=== PATIENT | female | born 1995 | race Two or more races ===

== ENCOUNTER 2019-05-28 23:04 | Inpatient (IN) | payer OTHER ==
[~2019-05-28] VITALS: Ht 170.2 cm; Wt 79.4 kg
[2019-05-29] VITALS (43 sets, daily range): BP systolic 99–142; BP diastolic 55–99
[2019-05-29] MEDS ORDERED: PENICILLIN G POTASSIUM IV 5 MU in D5W MINI-BAG PLUS 100 ML IV STA (00:07)
[2019-05-29] MEDS ORDERED: LR 1,000 ML IV SCH (00:08)
[2019-05-29] MEDS ORDERED: OXYTOCIN DRIP 30 UNITS in IV 1 EA IV SCH ×2 (00:15→11:13)
[2019-05-29 00:56] LABS: HEMATOCRIT 37.5 % (36.0-47.0); MEAN CORPUSCULAR HEMOGLOBIN 27.8 pg (27.0-33.0); MEAN CORPUSCULAR VOLUME 86.8 fl (80.0-96.0); PLATELET COUNT, AUTOMATED 220 10^3/uL (150-450); RED BLOOD COUNT 4.32 10^6/uL (4.00-5.40)
[2019-05-29] MEDS ORDERED: PENICILLIN G POTASSIUM IV 2.5 MU in IV 1 EA IV SCH (06:00)
[2019-05-29] MEDS ORDERED: FENTANYL 2MCG/ML ROPIVACAINE 0.2% IN 0.9% NACL 100ML IVBAG As Ordered ONE (06:34)
--- NOTE | 2019-05-29 07:15 | HPE ---
DATE OF ADMISSION: 05/28/2019 HISTORY: 24-year-old, (G) 1 female, at 39 and 3/7 weeks gestation by last menstrual period (LMP), consistent with an ultrasound and expected date of confinement (EDC) of 06/02/2019 admitted with contractions every 6-7 minutes for the last several hours. The contractions have increased in intensity. She denies vaginal bleeding. There is good movement. COURSE: The patient started care and has been in [place], [place], with [facility]. She has a history of lupus and did have maternal medicine consult during the while in [place]. She had no related complications. MEDICAL HISTORY: 1. Lupus. 2. Congenital heart defect which healed spontaneously and did not require surgical repair. SURGICAL HISTORY: None. ALLERGIES: None. SOCIAL HISTORY: The patient has been living in [place], but currently resides in [facility]. She has had no care in [facility]. She denies cigarettes, alcohol or drug use. 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 FAMILY HISTORY: Noncontributory. PHYSICAL EXAMINATION: Blood pressure 134/74. Pulse 84. Afebrile. She appears mildly uncomfortable. Head and Neck Exam: Normal. Lungs: Clear. Heart: Regular rate and rhythm. Abdomen: Nontender. Gravid. heart tones Category 1. Sterile Vaginal Exam: 3 cm, 100% effaced, -2, posterior, soft, vertex. Contractions every 5-6 minutes, moderate. Extremities: Nontender. LABS: HIV negative. Blood type O positive. GBS positive. ASSESSMENT: 24-year-old, G1, at 39 and 3/7 weeks gestation who presents in early labor. The patient has a history of lupus affecting . PLAN: The patient will be admitted for early labor in anticipation of delivery. The patient will be treated for GBS positive status with penicillin.
[2019-05-29] MEDS ORDERED: ONDANSETRON 4MG/2ML VIAL (J2405) IV PRN ×2 (08:00→11:15)
[2019-05-29] MEDS ORDERED: EPIDURAL COMMENT XX SCH (08:00)
[2019-05-29] MEDS ORDERED: diphenhydrAMINE INJ 50MG/ML VIAL (J1200) IV PRN (08:00)
[2019-05-29] MEDS ORDERED: NALOXONE INJ 0.4 MG/1 ML VIAL (J2310) IV PRN (08:00)
[2019-05-29] MEDS ORDERED: EPIDURAL/PCA KEYS XX PRN (08:00)
[2019-05-29] MEDS ORDERED: REFRIGERATOR IV KEYS XX PRN (08:00)
[2019-05-29] MEDS ORDERED: LACTATED RINGER'S 1000 ML IV PRN (08:00)
[2019-05-29] MEDS ORDERED: ePHEDrine SULFATE 25 MG/5 ML(5MG/ML) SYRINGE IV PRN (08:00)
[2019-05-29] MEDS ORDERED: FENTANYL/ROPIVACAINE/NACL BAG 100 ML EPIDURAL SCH (08:00)
[2019-05-29] MEDS: PRENATAL VITAMINS CHEWABLE TABLET PO SCH (09:00)
[2019-05-29] MEDS ORDERED: DIBUCAINE 1% OINTMENT 30GM TOP PRN (11:15)
[2019-05-29] MEDS ORDERED: MEASLES,MUMPS,RUBELLA VACCINE INJ (MMR-II) (90707) SC SCH (11:15)
[2019-05-29] MEDS ORDERED: RHOGAM 300 MCG (1500 IU) INJ (J2790) IM SCH (11:15)
[2019-05-29] MEDS ORDERED: DOCUSATE SODIUM 100 MG CAP PO PRN (11:15)
[2019-05-29] MEDS ORDERED: METHYLERGONOVINE MALEATE 0.2 MG TAB PO PRN (11:15)
[2019-05-29] MEDS ORDERED: ACETAMINOPHEN TAB 650MG DOSE (2X325MG) PO PRN (11:15)
[2019-05-29] MEDS ORDERED: ACETAMINOPHEN 500 MG TAB PO PRN (11:15)
[2019-05-29] MEDS ORDERED: IBUPROFEN 800 MG TAB PO PRN (11:15)
--- NOTE | 2019-05-29 14:10 | DN ---
DATE OF DELIVERY: 05/29/2019 PREDELIVERY DIAGNOSIS: 39 weeks labor. Maternal history of lupus. POST DELIVERY DIAGNOSIS: Delivered. PROCEDURE: Spontaneous vaginal delivery. GRAVURE PRESS SET UP OPERATOR: Dr. Inder Cardona M.D. COST SPECIALIST: Dalton Shen DO ANESTHESIA: Epidural. ESTIMATED BLOOD LOSS: 300 mL. FINDINGS: 6 pound, 13 ounce female with scores 8 and 9. DELIVERY SUMMARY: After 45 minute short second stage, the patient had spontaneous delivered a 6 pound 13 ounce female infant scores 8 and 9 under epidural anesthesia. There is no nuchal cord. The remaining shoulders delivered with ease. The was handed to the mother and cried immediately. The cord was doubly clamped and cut. The placenta delivered my manual extraction after 45 minutes. The patient received IV pitocin immediately after delivery of the placenta. A first degree perineal laceration and first degree left labial laceration repaired with 2-0 Chromic in the usual fashion. Sponges and needle counts are correct.
[2019-05-29] MEDS: IBUPROFEN 600 MG TAB PO PRN (22:46)
[2019-05-30 06:00] VITALS: BP 144/74
[2019-05-30 06:12] VITALS: BP 122/71
--- NOTE | 2019-05-30 07:27 | IPNPDOC ---
Text Note Date of Service The patient was seen on 05/30/19. NOTE PP #1 Feels well. Adequate pain management. Breast feeding. Voiding VSS, afebrile, normotensive Breasts soft, nipples intact Fundus firm, NT, down 1 FB Locha rubra light without odor Perineum well approximated PP #1 Routine care. Anticipate D/C in am VS,Fishbone, I+O VS, Fishbone, I+O Vital Signs Date Time Temp Pulse Resp B/P (MAP) Pulse Ox O2 Delivery O2 Flow Rate FiO2 05/30/19 06:12 98.9 78 20 122/71 (88) Room Air 05/30/19 06:00 98 I&O- Last 24 Hours up to 6 AM 05/30/19 06:00 Intake Total 1740 ml Output Total 950 ml Balance 790 ml Cecilia Meraz CNM May 30, 2019 07:27
[2019-05-30] MEDS: PRENATAL VITAMINS CHEWABLE TABLET PO SCH (09:32)
[2019-05-30] MEDS: IBUPROFEN 600 MG TAB PO PRN (14:47)
[2019-05-30 18:00] VITALS: BP 127/77
[2019-05-31 06:00] VITALS: BP 129/75
[2019-05-31] MEDS: PRENATAL VITAMINS CHEWABLE TABLET PO SCH (09:19)
== END 2019-05-31 13:26 | disposition home or self-care (01) | DRG 560 ==
LOC: M LDO 23:04 → M LDI 23:37 → M OBS 05-29 13:40
PROVIDERS: ADMIT Specialist; ATTEND Specialist
PROC: 10E0XZZ Delivery of Products of Conception, External Approach (ICD-10-PCS; principal; 2019-05-29)
PROC: 0HQ9XZZ Repair Perineum Skin, External Approach (ICD-10-PCS; 2019-05-29)
DX: O26.899 Other specified pregnancy related conditions, unspecified trimester (principal); M32.9 Systemic lupus erythematosus, unspecified; Z37.0 Single live birth; Z3A.39 39 weeks gestation of pregnancy; O70.0 First degree perineal laceration during delivery

== ENCOUNTER 2020-12-03 12:05 | Emergency (ER) | payer OTHER ==
[~2020-12-03] VITALS: Ht 170.2 cm; Wt 66.4 kg
[2020-12-03] MEDS ORDERED: NS 1,000 ML IV ONE ×2 (12:50→13:05)
[2020-12-03] MEDS ORDERED: GI COCKTAIL 50ML BTL(HYOSCYAMINE/MAALOX/LIDOCAINE VISCOUS)(1:3:1) PO ONE (13:05)
[2020-12-03] MEDS ORDERED: METOCLOPRAMIDE INJ 10MG/2ML VIAL (J2765 PER 1) IV ONE (13:05)
[2020-12-03 13:41] LABS: BASO % 0.5 % (0.0-1.0); EOS # 0.1 10^3/uL (0.0-0.5); EOS % 1.2 % (0.0-3.0); HEMATOCRIT 46.1 % (36.0-47.0); HEMOGLOBIN 14.2 g/dl (12.0-15.5); LYMPH # 1.8 10^3/uL (1.5-5.0); LYMPH % 24.8 % (24.0-44.0); MEAN CORPUSCULAR HEMOGLOBIN 26.5 pg (27.0-33.0); MEAN CORPUSCULAR HGB CONC 30.8 g/dl (32.0-36.5); MEAN CORPUSCULAR VOLUME 86.2 fl (80.0-96.0); MONO # 0.4 10^3/uL (0.0-0.8); MONO % 5.3 % (2.0-8.0); NEUTROPHILS % 67.9 % (36.0-66.0); PLATELET COUNT, AUTOMATED 279 10^3/uL (150-450); RED BLOOD COUNT 5.35 10^6/uL (4.00-5.40); WHITE BLOOD COUNT 7.3 10^3/uL (4.0-10.0)
[2020-12-03 13:43] LABS: ALBUMIN 4.6 GM/DL (3.2-5.2); ALT/SGPT 21 U/L (12-78); BILIRUBIN,DIRECT 0.3 MG/DL (0.0-0.2); BILIRUBIN,TOTAL 0.9 MG/DL (0.2-1.0); BLOOD UREA NITROGEN 8 MG/DL (7-18); CALCIUM LEVEL 9.5 MG/DL (8.5-10.1); CARBON DIOXIDE LEVEL 30 MEQ/L (21-32); CHLORIDE LEVEL 105 MEQ/L (98-107); CREATININE FOR GFR 0.75 MG/DL (0.55-1.30); GLOMERULAR FILTRATION RATE > 60.0 (>60); GLUCOSE, FASTING 87 MG/DL (70-100); LIPASE 83 U/L (73-393); POTASSIUM SERUM 3.9 MEQ/L (3.5-5.1); SODIUM LEVEL 142 MEQ/L (136-145)
[2020-12-03 13:55] LABS: HCG, SERUM QUALITATIVE NEGATIVE (NEGATIVE)
[2020-12-03] MEDS ORDERED: SUCRALFATE SUSP 1GM/10ML UD PO ONE (14:10)
[2020-12-03] MEDS ORDERED: PEPC1TAB5 PO (15:06)
[2020-12-03] MEDS ORDERED: CARA1TAB6 PO (15:06)
[2020-12-03 15:28] VITALS: BP 122/68
== END 2020-12-03 15:33 | disposition home or self-care (01) ==
LOC: M ED 12:05
DX: R10.9 Unspecified abdominal pain (principal); R19.7 Diarrhea, unspecified; R11.0 Nausea; M32.9 Systemic lupus erythematosus, unspecified
CPT/HCPCS: 80048; 80076; 83690; 84703; 85025; 96361; 96374; 99283; J2765

== ENCOUNTER 2021-03-28 19:12 | Emergency (ER) | payer OTHER, SELFPAY ==
[~2021-03-28] VITALS: Ht 170.2 cm; Wt 65.0 kg
[~2021-03-28 19:12] MED LIST: CARA1TAB6 PO; PEPC1TAB5 PO
[2021-03-28 19:14] VITALS: BP 144/60
--- OUTSIDE RECORDS SUMMARY | 2021-03-28 19:21 | CCD ---
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 Name Role Phone Deyvi Alfredo MD Unavailable Unavailable Deyvi Alfredo MD Unavailable Unavailable Deyvi Alfredo MD Unavailable Unavailable Deyvi Alfredo MD Unavailable Unavailable Deyvi Alfredo MD Unavailable Unavailable Deyvi Alfredo MD Unavailable Unavailable Deyvi Alfredo MD Unavailable Unavailable Deyvi Alfredo MD Unavailable Unavailable Deyvi Alfredo MD Unavailable Unavailable Deyvi Alfredo MD Unavailable Unavailable Deyvi Alfredo MD Unavailable Unavailable Deyvi Alfredo MD Unavailable Unavailable Deyvi Alfredo MD Unavailable Unavailable Deyvi Alfredo MD Unavailable Unavailable Deyvi Alfredo MD Unavailable Unavailable Deyvi Alfredo MD Unavailable Unavailable Deyvi Alfredo MD Unavailable Unavailable Deyvi Alfredo MD Unavailable Unavailable Deyvi Alfredo MD Unavailable Unavailable Deyvi Alfredo MD Unavailable Unavailable Deyvi Alfredo MD Unavailable Unavailable Deyvi Alfredo MD Unavailable Unavailable Deyvi Alfredo MD Unavailable Unavailable Deyvi Alfredo MD Unavailable Unavailable Deyvi Alfredo MD Unavailable Unavailable Deyvi Alfredo MD Unavailable Unavailable Deyvi Alfredo MD Unavailable Unavailable Deyvi Alfredo MD Unavailable Unavailable Deyvi Alfredo MD Unavailable Unavailable Deyvi Alfredo MD Unavailable Unavailable Deyvi Alfredo MD Unavailable Unavailable Deyvi Alfredo MD Unavailable Unavailable Deyvi Alfredo MD Unavailable Unavailable Deyvi Alfredo MD Unavailable Unavailable Deyvi Alfredo MD Unavailable Unavailable Deyvi Alfredo MD Unavailable Unavailable Deyvi Alfredo MD Unavailable Unavailable Deyvi Alfredo MD Unavailable Unavailable Deyvi Alfredo MD Unavailable Unavailable Deyvi Alfredo MD Unavailable Unavailable Deyvi Alfredo MD Unavailable Unavailable Deyvi Alfredo MD Unavailable Unavailable Deyvi Alfredo MD Unavailable Unavailable Deyvi Alfredo MD Unavailable Unavailable Deyvi Alfredo MD Unavailable Unavailable Deyvi Alfredo MD Unavailable Unavailable Deyvi Alfredo MD Unavailable Unavailable Deyvi Alfredo MD Unavailable Unavailable Deyvi Alfredo MD Unavailable Unavailable Deyvi Alfredo MD Unavailable Unavailable Deyvi Alfredo MD Unavailable Unavailable Deyvi Alfredo MD Unavailable Unavailable Deyvi Alfredo MD Unavailable Unavailable Deyvi Alfredo MD Unavailable Unavailable Deyvi Alfredo MD Unavailable Unavailable Deyvi Alfredo MD Unavailable Unavailable Deyvi Alfredo MD Unavailable Unavailable Deyvi Alfredo MD Unavailable Unavailable Deyvi Alfredo MD Unavailable Unavailable Deyvi Alfredo MD Unavailable Unavailable Deyvi Alfredo MD Unavailable Unavailable Deyvi Alfredo MD Unavailable Unavailable Deyvi Alfredo MD Unavailable Unavailable Deyvi Alfredo MD Unavailable Unavailable Deyvi Alfredo MD Unavailable Unavailable Deyvi Alfredo MD Unavailable Unavailable Deyvi Alfredo MD Unavailable Unavailable Deyvi Alfredo MD Unavailable Unavailable Deyvi Alfredo MD Unavailable Unavailable Deyvi Alfredo MD Unavailable Unavailable Deyvi Alfredo MD Unavailable Unavailable Deyvi Alfredo MD Unavailable Unavailable Deyvi Alfredo MD Unavailable Unavailable Deyvi Alfredo MD Unavailable Unavailable Deyvi Alfredo MD Unavailable Unavailable Deyvi Alfredo MD Unavailable Unavailable Deyvi Alfredo MD Unavailable Unavailable Deyvi Alfredo MD Unavailable Unavailable Deyvi Alfredo MD Unavailable Unavailable Deyvi Alfredo MD Unavailable Unavailable Deyvi Alfredo MD Unavailable Unavailable Deyvi Alfredo MD Unavailable Unavailable Deyvi Alfredo MD Unavailable Unavailable Deyvi Alfredo MD Unavailable Unavailable Deyvi Alfredo MD Unavailable Unavailable Deyvi Alfredo MD Unavailable Unavailable Deyvi lAfredo MD Unavailable Unavailable Deyvi Alfredo MD Unavailable Unavailable Deyvi Alfredo MD Unavailable Unavailable Deyvi Alfredo MD Unavailable Unavailable Deyvi Alfredo MD Unavailable Unavailable Deyvi Alfredo MD Unavailable Unavailable Deyvi Alfredo MD Unavailable Unavailable Fleming, [place] Ketty Unavailable Unavailable Fleming, [place] Ketty Unavailable Unavailable Fleming, [place] Ketty Unavailable Unavailable Fleming, [place] Ketty Unavailable Unavailable Fleming, [place] Ketty Unavailable Unavailable Fleming, [place] Ketty Unavailable Unavailable Fleming, [place] Ketty Unavailable Unavailable Fleming, [place] Ket[place] Unavailable Unavailable Fleming, [place] Ketty Unavailable Unavailable Fleming, [place] Ketty Unavailable Unavailable Fleming, [place] Ket[place] Unavailable Unavailable Fleming, [place] Unavailable Unavailable Fleming, [place] Unavailable Unavailable Re-disclosure Warning The records that you are about to access may contain information from federally-assisted alcohol or drug abuse programs. If such information is present, then the following federally mandated warning applies: This information has been disclosed to you from records protected by federal confidentiality rules (42 CFR part 2). The federal rules prohibit you from making any further disclosure of this information unless further disclosure is expressly permitted by the written consent of the person to whom it pertains or as otherwise permitted by 42 CFR part 2. A general authorization for the release of medical or other information is NOT sufficient for this purpose. The Federal rules restrict any use of the information to criminally investigate or prosecute any alcohol or drug abuse patient.The records that you are about to access may contain highly sensitive health information, the redisclosure of which is protected by Article 27-F of the [facility] Public Health law. If you continue you may have access to information: Regarding HIV / AIDS; Provided by facilities licensed or operated by the [facility] Office of Mental Health; or Provided by the [facility] Office for People With Developmental Disabilities. If such information is present, then the following [facility] mandated warning applies: This information has been disclosed to you from confidential records which are protected by state law. State law prohibits you from making any further disclosure of this information without the specific written consent of the person to whom it pertains, or as otherwise permitted by law. Any unauthorized further disclosure in violation of state law may result in a fine or [place] health [facility] sentence or both. A general authorization for the release of medical or other information is NOT sufficient authorization for further disc losure. Allergies and Adverse Reactions Type Description Substance Reaction Status Data Source(s ) Allergy to substance Allergy to substance Allergy to substance [facility] ([facility]) Allergy to substance Allergy to substance Allergy to substance KAIAL ([facility]) Family History Family Member Name Family Member Gender Family Member Status Date o f Status Description Data Source(s) Unknown Unknown Problem MEDENT ([facility] Encounters Encounter Providers Location Date Indications Data Source(s ) Tony Alfredo MD: [address] [place] [phone], Ph. Attender: Tony Alfredo MD [facility] Medical 08/23/2020 12:00:00 AM EDT [facility]) KettyJOSE C DyeP-C: [address] [place] [address], Ph. Attender: Ketty Fleming [facility] Medical 07/26/2020 12:00:00 AM EST KAILA ([facility]) JOSE C LawlerP-C: [address] [place] [phone], Ph. Attender: Ketty Fleming [facility] Medical 07/26/2020 12:00:00 AM EST [place] ([facility]) Immunizations Vaccine Date Status Description Data Source(s) COVID-19, mRNA, LNP-S, PF, 100 mcg/0.5 mL dose 08/23/2020 09 :42:59 PM EDT completed .5 mL [place] ([facility]) COVID-19 VACCINE Moderna 08/23/2020 12:00:00 AM EDT completed [place] Vaccine Series Complete: YESThis Data wa s Submitted to [facility] Via AntVoice. COVID-19, mRNA, LNP-S, PF, 100 mcg/0.5 mL dose 07/26/2020 01 :54:41 PM EST completed 10.5 mL [place]AILA ([facility]) COVID-19, mRNA, LNP-S, PF, 100 mcg/0.5 mL dose 07/26/2020 01 :54:41 PM EST completed .5 mL [place] ([facility]) COVID-19 VACCINE Moderna 07/26/2020 12:00:00 AM EST completed [place] Vaccine Series Complete: NOThis Data was Submitted to [facility] Via Quantum4DIS. Medications No Information Insurance Providers Payer name Policy type / Coverage type Policy ID Covered green party ID Covered green party's relationship to jones Policy Jones Plan Information BLUE CROSS [id number] MOTHER [id number] BLUE CROSS [id number] MOTHER [id number] SELF PAY BLUE CROSS [facility] [id number] M [id number] BLUE CROSS [facility] [id number] M [id number] BS Facets Commercial [id number] Family Dependent BLUE CROSS OUT OF AREA [id number] FATHER [id number] [facility] [id number] 2 [id number] [facility] [id number] [facility] [id number] Problems, Conditions, and Diagnoses No Information Surgeries/Procedures No Information Results ID Date Data Source [id number] 04/26/2020 12:00:00 AM EST [place] Name Value Range Interpretation Code Description Data [place] rce(s) Supporting Document(s) SARS coronavirus 2 Ag [place] This lab was ordered by [facility] and reported by [facility]. Procedure Social History No Information
--- OUTSIDE RECORDS SUMMARY | 2021-03-28 21:03 | CCD ---
Author Author [facility] Organization [facility] Address Unknown Phone Unavailable Care Team Providers Care Hall Monitor Name Role Phone Deyvi Alfredo MD Unavailable [...] Unavailable Unavailable Deyvi Alfredo MD Unavailable Unavailable Deyiv Alfredo MD Unavailable Unavailable Deyvi Alfredo MD [...] Unavailable Deyvi Alfredo MD Unavailable Unavailable Fleming, [place] Ketty Unavailable Unavailable Fleming, [place] Ketty Unavailable Unavailable Fleming, [place] Ketty Unavailable Unavailable Fleming, [place] Ketty Unavailable Unavailable Fleming, [place] Ketty Unavailable Unavailable Fleming, [place] Ketty Unavailable Unavailable Fleming, [place] Ketty Unavailable Unavailable Fleimng, [place] Ketty Unavailable Unavailable Fleming, [place] Ketty Unavailable Unavailable Fleming, [place] Ketty Unavailable Unavailable Fleming, [place] Ketty Unavailable Unavailable Fleming, [place] Ketty Unavailable Unavailable Fleming, [place] Ketty Unavailable Unavailable Re-disclosure Warning The records [...] is protected by Article 27-F of the [facility] Public Health law. If you continue you may have access to information: Regarding HIV / AIDS; Provided by facilities licensed or operated by the [facility] Office of Mental Health; or Provided by the [facility] Office for People With Developmental Disabilities. If such information is present, then the following [facility] mandated warning applies: This information has been [...] law may result in a fine or senior care sentence or both. A general authorization for the release of medical or other information is NOT sufficient authorization for further disc losure. Allergies and Adverse Reactions Type Description Substance Reaction Status Data Source(s ) Allergy to substance Allergy to substance Allergy to substance [facility] ([facility]) Allergy to substance Allergy to substance Allergy to substance [facility] ([facility]) Family History Family Member Name Family Member Gender Family Member Status Date o f Status Description Data Source(s) Unknown Unknown Problem MEDENT ([facility] Encounters Encounter Providers Location Date Indications Data Source(s ) Tony Alfredo MD: [address] [place] [phone], Ph. Attender: Tony Alfredo MD [facility] Medical 08/23/2020 12:00:00 AM EDT [facility]) KettyJOSE C DyeP-C: [address] [place] [phone], Ph. Attender: Ketty Fleming [facility] Medical 07/26/2020 12:00:00 AM EST KAILA ([facility]) JOSE C LawlerP-C: [address] [place] [phone], Ph. Attender: Ketty Fleming [facility] Medical 07/26/2020 12:00:00 AM EST [place] ([facility]) Immunizations Vaccine Date Status Description Data Source(s) COVID-19, mRNA, LNP-S, PF, 100 mcg/0.5 mL dose 08/23/2020 09 :42:59 PM EDT completed .5 mL [place] ([facility]) COVID-19 VACCINE Moderna 08/23/2020 12:00:00 AM EDT completed [place] Vaccine Series Complete: YESThis Data wa s Submitted to [facility] Via Desal[employer]ch. COVID-19, mRNA, LNP-S, PF, 100 mcg/0.5 mL dose 07/26/2020 01 :54:41 PM EST completed 10.5 mL [place]AIL[place] ([facility]) COVID-19, mRNA, LNP-S, PF, 100 mcg/0.5 mL dose 07/26/2020 01 :54:41 PM EST completed .5 mL [place] ([facility]) COVID-19 VACCINE Moderna 07/26/2020 12:00:00 AM EST completed [place] Vaccine Series Complete: NOThis Data was Submitted to [facility] Via Tidy BooksIS. Medications No Information Insurance Providers Payer name Policy type / Coverage type Policy ID Covered green party ID Covered green party's relationship to jones Policy Jones Plan Information BLUE CROSS [id number] MOTHER [id number] BLUE CROSS [id number] MOTHER [id number] SELF PAY BLUE CROSS [facility] [id number] M [id number] BLUE CROSS [facility] [id number] M [id number] BS Facets Commercial [id number] Family Dependent BLUE CROSS OUT OF AREA [id number] FATHER [id number] [facility] [id number] 2 [id number] [facility] [id number] [facility] [id number] Problems, Conditions, and Diagnoses No Information Surgeries/Procedures No Information Results ID Date Data Source [id number] 04/26/2020 12:00:00 AM EST [place] Name Value Range Interpretation Code Description Data [place] rce(s) Supporting Document(s) SARS coronavirus 2 Ag [place] This lab was ordered by [facility] and reported by [facility]. Procedure Social History No Information
== END 2021-03-28 20:58 | disposition left against medical advice (07) ==
LOC: M ED 19:12
DX: Z53.21 Procedure and treatment not carried out due to patient leaving prior to being seen by health care provider (principal)

== ENCOUNTER → 2021-06-16 | Outpatient (CLI) | payer SELFPAY ==
[2021-06-16 17:14] LABS: BASO % 0.4 % (0.0-1.0); EOS # 0.2 10^3/uL (0.0-0.5); EOS % 1.6 % (0.0-3.0); HEMATOCRIT 33.5 % (36.0-47.0); HEMOGLOBIN 10.7 g/dl (12.0-15.5); LYMPH # 1.9 10^3/uL (1.5-5.0); LYMPH % 19.1 % (24.0-44.0); MEAN CORPUSCULAR HEMOGLOBIN 27.9 pg (27.0-33.0); MEAN CORPUSCULAR HGB CONC 31.9 g/dl (32.0-36.5); MEAN CORPUSCULAR VOLUME 87.2 fl (80.0-96.0); MONO # 0.7 10^3/uL (0.0-0.8); MONO % 6.8 % (2.0-8.0); NEUTROPHILS # 7.2 10^3/uL (1.5-8.5); NEUTROPHILS % 71.6 % (36.0-66.0); PLATELET COUNT, AUTOMATED 269 10^3/uL (150-450); RED BLOOD COUNT 3.84 10^6/uL (4.00-5.40); WHITE BLOOD COUNT 10.1 10^3/uL (4.0-10.0)
[2021-06-16 17:30] LABS: CREATININE,RANDOM URINE 80.5 MG/DL; TOTAL PROTEIN,RANDOM URINE 5.2 MG/DL (0.0-12.0)
[2021-06-16 18:26] LABS: HIV 1&2 SCREEN CENTAUR NEGATIVE (NEGATIVE)
[2021-06-16 19:28] LABS: GC DNA AMPLIFICATION NEGATIVE (NEGATIVE)
== END ==
LOC: M PLALAB 15:08
PROVIDERS: ATTEND Advanced Practice Midwife
DX: Z34.91 Encounter for supervision of normal pregnancy, unspecified, first trimester (principal); Z3A.00 Weeks of gestation of pregnancy not specified

== ENCOUNTER → 2021-06-23 | Outpatient (CLI) | payer SELFPAY | LOC: M WHC 07:07 | PROVIDERS: ATTEND Specialist | DX: Z34.02 Encounter for supervision of normal first pregnancy, second trimester (principal); Z36.89 Encounter for other specified antenatal screening; Z3A.19 19 weeks gestation of pregnancy ==

== ENCOUNTER → 2021-08-22 | Outpatient (CLI) | payer BC ==
[2021-08-22 13:33] LABS: HEMOGLOBIN 11.5 g/dl (12.0-15.5); MEAN CORPUSCULAR HGB CONC 31.9 g/dl (32.0-36.5); MEAN CORPUSCULAR VOLUME 87.8 fl (80.0-96.0); PLATELET COUNT, AUTOMATED 256 10^3/uL (150-450); WHITE BLOOD COUNT 10.9 10^3/uL (4.0-10.0)
[2021-08-22 15:49] LABS: GC DNA AMPLIFICATION NEGATIVE (NEGATIVE)
== END ==
LOC: M PLALAB 09:01
PROVIDERS: ATTEND Obstetrics & Gynecology
DX: Z34.92 Encounter for supervision of normal pregnancy, unspecified, second trimester (principal); Z36.89 Encounter for other specified antenatal screening

== ENCOUNTER → 2021-10-17 | Outpatient (REF) | payer BC ==
[~2021-10-17] MED LIST changes: +PRENTAB9 PO
== END ==
LOC: M SFHCWAGY 09:59
PROVIDERS: ATTEND Specialist
DX: Z34.83 Encounter for supervision of other normal pregnancy, third trimester (principal); Z36.85 Encounter for antenatal screening for Streptococcus B

== ENCOUNTER 2021-10-24 07:40 | Outpatient (CLI) | payer BC ==
[2021-10-24] VITALS (7 sets, daily range): BP systolic 113–121; BP diastolic 63–82
[~2021-10-24] VITALS: Ht 170.2 cm; Wt 77.4 kg
[~2021-10-24 07:40] MED LIST changes: -PRENTAB9 PO
[2021-10-24] MEDS ORDERED: PRENTAB9 PO (08:10)
[2021-10-24] MEDS ORDERED: HOME MED LIST COMPLETE! XX SCH (08:15)
[2021-10-29] MEDS ORDERED: PERCOCET PO (12:22)
[2021-10-29] MEDS ORDERED: COLA100C5 PO (12:22)
[2021-10-29] MEDS ORDERED: IBUP80TA PO (12:22)
== END 2021-10-24 10:41 | disposition home or self-care (01) ==
LOC: M LDO 07:40
PROVIDERS: ATTEND Specialist
DX: O32.1XX9 Maternal care for breech presentation, other fetus (principal); Z3A.37 37 weeks gestation of pregnancy
CPT/HCPCS: 59025; 59412; G0378; G0463

== ENCOUNTER → 2024-12-18 | Outpatient (CLI) | payer BC ==
[~2024-12-18] MED LIST changes: +COLA100C5 PO; +IBUP80TA PO; +PERCOCET PO; +PRENTAB9 PO
[2024-12-18 10:39] LABS: C REACTIVE PROTEIN QUANTITATIV < 0.50 MG/DL (<1.0)
[2024-12-18 10:40] LABS: IRON (FE) 188 UG/DL (50-170); PERCENT SATURATION 51.2 % (13.2-45.0)
[2024-12-18 10:58] LABS: BASO # 0.1 10^3/uL (0.0-0.2); BASO % 0.7 % (0.0-1.0); EOS # 0.2 10^3/uL (0.0-0.5); EOS % 2.1 % (0.0-3.0); LYMPH # 2.3 10^3/uL (1.5-5.0); LYMPH % 29.8 % (24.0-44.0); MONO # 0.5 10^3/uL (0.0-0.8); MONO % 6.1 % (2.0-8.0); NEUTROPHILS # 4.7 10^3/uL (1.5-8.5); NEUTROPHILS % 60.9 % (36.0-66.0); PLATELET COUNT, AUTOMATED 288 10^3/uL (150-450)
[2024-12-18 11:04] LABS: ERYTHROCYTE SEDIMENTATION RATE 28 mm/hr (0-20)
[2024-12-18 11:40] LABS: ALT/SGPT 18 U/L (7.0-40); AST/SGOT 18 U/L (<34); CA 125 3.0 U/ML (<35); CALCIUM LEVEL 9.2 MG/DL (8.5-10.1); CARBON DIOXIDE LEVEL 27 MMOL/L (20-31); CHLORIDE LEVEL 103 MMOL/L (98-107); CREATININE FOR GFR 0.83 MG/DL (0.55-1.30); FREE T4 1.26 NG/DL (0.89-1.76); GLOMERULAR FILTRATION RATE > 90.0 (>60); POTASSIUM SERUM 4.6 MMOL/L (3.5-5.1); SODIUM LEVEL 140 MMOL/L (136-145); THYROID PEROXIDASE ANTIBODY < 28.0 U/ML (<60.0); TOTAL 25(OH) VITAMIN D 47.3 NG/ML (20.0-100.0); VITAMIN B12 LEVEL 542 PG/ML (211-911)
[2024-12-22 20:24] LABS: LYME TOTAL ANTIBODY CIA <= 0.90 Index (<=0.90)
== END ==
LOC: M PLALAB 08:44 → MERGE 08:44
PROVIDERS: ATTEND Family Medicine
DX: M32.9 Systemic lupus erythematosus, unspecified (principal); R53.83 Other fatigue; R14.0 Abdominal distension (gaseous)

== ENCOUNTER → 2024-12-18 | Outpatient (CLI) | payer BC, OTHER ==
[~2024-12-18] MED LIST changes: +ISOVUE-370 76% 100 ML VIAL As Ordered ONE
== END ==
LOC: MERGE 16:12 → M RAD 16:12
PROVIDERS: ATTEND Family Medicine
DX: R10.84 Generalized abdominal pain (principal); K57.30 Diverticulosis of large intestine without perforation or abscess without bleeding
CPT/HCPCS: 74177; Q9967

== ENCOUNTER → 2025-03-31 | Outpatient (CLI) | payer BC ==
[~2025-03-31] MED LIST changes: -ISOVUE-370 76% 100 ML VIAL As Ordered ONE
[2025-03-31 15:32] LABS: IRON (FE) 111.0 UG/DL (50-170); PERCENT SATURATION 31.6 % (13.2-45.0)
[2025-03-31 15:39] LABS: BASO # 0.1 10^3/uL (0.0-0.2); BASO % 0.8 % (0.0-1.0); EOS # 0.2 10^3/uL (0.0-0.5); EOS % 2.5 % (0.0-3.0); LYMPH # 2.1 10^3/uL (1.5-5.0); LYMPH % 28.2 % (24.0-44.0); MONO # 0.5 10^3/uL (0.0-0.8); MONO % 6.1 % (2.0-8.0); NEUTROPHILS # 4.7 10^3/uL (1.5-8.5); NEUTROPHILS % 62.1 % (36.0-66.0); PLATELET COUNT, AUTOMATED 258 10^3/uL (150-450)
== END ==
LOC: M PLALAB 12:44
PROVIDERS: ATTEND Family Medicine
DX: E83.19 Other disorders of iron metabolism (principal); M32.9 Systemic lupus erythematosus, unspecified